=== PATIENT | male | born 1950 | race Caucasian/White ===

== ENCOUNTER → 2016-12-08 | Outpatient (CLI) | payer MEDICARE, OTHER ==
[~2016-12-08] MED LIST: ADVIL200 MG PO; CIPRO 500MG TA500 MG PO; DICLOFENAC; MOBIC15 MG PO; MULTIPLE VITAMI1 CAP PO; NORCO 325 MG-7.1 TAB PO
== END ==
LOC: COL.RAD 12:51
DX: M25.551 Pain in right hip (principal); M13.851 Other specified arthritis, right hip
CPT/HCPCS: J3301; Q9967

== ENCOUNTER → 2017-03-27 | Outpatient (CLI) | payer MEDICARE, OTHER | LOC: COL.RAD 07:49 | DX: M16.11 Unilateral primary osteoarthritis, right hip (principal) | CPT/HCPCS: J3301; Q9967 ==

== ENCOUNTER → 2017-06-10 | Outpatient (CLI) | payer MEDICARE, OTHER | LOC: ZCOL.LAB 15:44 | DX: Z01.818 Encounter for other preprocedural examination (principal); Z86.14 Personal history of Methicillin resistant Staphylococcus aureus infection ==

== ENCOUNTER → 2017-07-23 | Outpatient (CLI) | payer MEDICARE, OTHER | LOC: COL.LAB 08:52 | DX: Z01.812 Encounter for preprocedural laboratory examination (principal); M25.851 Other specified joint disorders, right hip ==

== ENCOUNTER 2017-09-15 14:00 | Outpatient (RCR) | payer MEDICARE, OTHER | END 2017-09-15 15:49 | disposition home or self-care (01) | LOC: WSPT 14:00 | DX: Z47.1 Aftercare following joint replacement surgery (principal); Z96.641 Presence of right artificial hip joint | CPT/HCPCS: G8978-GP; G8979-GP; G8980-GP ==

== ENCOUNTER → 2019-07-27 | Outpatient (CLI) | payer MEDICARE, OTHER | LOC: COL.RAD 10:56 | DX: E04.2 Nontoxic multinodular goiter (principal); E01.0 Iodine-deficiency related diffuse (endemic) goiter ==

== ENCOUNTER 2022-10-27 14:28 | Outpatient (RCR) | payer MEDICARE, OTHER | END 2022-10-28 | LOC: PT.GENESIS | DX: Z96.652 Presence of left artificial knee joint (principal) ==